=== PATIENT | male | born 2000 | race Caucasian/White ===

== ENCOUNTER 2022-02-01 16:48 | Emergency (ER) | payer SELFPAY ==
[~2022-02-01] VITALS: Ht 172.7 cm; Wt 68.0 kg
[2022-02-01 17:04] VITALS: BP 154/84
== END 2022-02-01 17:38 | disposition left against medical advice (07) ==
LOC: ER 16:48
DX: T40.2X1A Poisoning by other opioids, accidental (unintentional), initial encounter (principal); I49.9 Cardiac arrhythmia, unspecified; Y92.9 Unspecified place or not applicable
CPT/HCPCS: 93005; 99283